=== PATIENT | male | born 1945 | race Caucasian/White ===

== ENCOUNTER → 2017-07-24 | Outpatient (CLI) | payer BC, OTHER | END | disposition home or self-care (01) | LOC: CVU 06:40 | PROVIDERS: ATTEND Internal Medicine Cardiovascular Disease | DX: I87.2 Venous insufficiency (chronic) (peripheral) (principal) | CPT/HCPCS: 93970 ==

== ENCOUNTER 2017-10-02 14:30 | Day surgery (SDC) | payer BC ==
[~2017-10-02] VITALS: Ht 180.3 cm; Wt 87.7 kg
[2017-10-02] MEDS ORDERED: LIDOCAINE/PF 1%-EPI 1:200K, 30 ML ONE ×2 (15:15→15:35)
[2017-10-02] MEDS ORDERED: LIDOCAINE 2%, 20ML ONE (15:15)
[2017-10-02] MEDS ORDERED: SODIUM BICARB 8.4%, 50ML SYRINGE ONE (15:39)
== END 2017-10-02 16:52 ==
LOC: CACL 14:30
PROVIDERS: ATTEND Internal Medicine Cardiovascular Disease
DX: I87.2 Venous insufficiency (chronic) (peripheral) (principal); Z88.6 Allergy status to analgesic agent; Z88.1 Allergy status to other antibiotic agents; Z88.8 Allergy status to other drugs, medicaments and biological substances; Z91.09 Other allergy status, other than to drugs and biological substances
CPT/HCPCS: 36475; C1894; J3490

== ENCOUNTER → 2017-10-04 | Outpatient (CLI) | payer BC | END | disposition home or self-care (01) | LOC: CVU 09:51 | PROVIDERS: ATTEND Internal Medicine Cardiovascular Disease | DX: I87.2 Venous insufficiency (chronic) (peripheral) (principal); Z98.890 Other specified postprocedural states | CPT/HCPCS: 93971 ==